=== PATIENT | female | born 1995 | race Caucasian/White ===

== ENCOUNTER → 2016-12-18 | Outpatient (CLI) | payer OTHER ==
[~2016-12-18] MED LIST: DOXY30TA PO; FERR1TAB23 PO; MTR600X PO; PANT40TA PO; PRENTAB26 PO; RANI300T2 PO; SUCR1TAB29 PO
[2016-12-18 15:18] LABS: THYROID STIMULATING HORMONE 1.8 uIu/ml (0.300-4.500)
== END | disposition home or self-care (01) ==
LOC: C.LAB1850 13:39
PROVIDERS: ATTEND Physician Assistant
DX: E05.00 Thyrotoxicosis with diffuse goiter without thyrotoxic crisis or storm (principal)

== ENCOUNTER → 2017-01-01 | Outpatient (CLI) | payer OTHER ==
[2017-01-01 14:15] LABS: THYROID STIMULATING HORMONE 1.42 uIu/ml (0.300-4.500)
== END | disposition home or self-care (01) ==
LOC: C.LAB1850 12:29
PROVIDERS: ATTEND Physician Assistant
DX: O99.280 Endocrine, nutritional and metabolic diseases complicating pregnancy, unspecified trimester (principal); E05.00 Thyrotoxicosis with diffuse goiter without thyrotoxic crisis or storm; Z3A.00 Weeks of gestation of pregnancy not specified

== ENCOUNTER → 2017-01-27 | Outpatient (CLI) | payer OTHER ==
[2017-01-27 15:16] LABS: THYROID STIMULATING HORMONE 1.7 uIu/ml (0.300-4.500)
== END | disposition home or self-care (01) ==
LOC: C.LAB1850 12:52
PROVIDERS: ATTEND Physician Assistant
DX: O99.280 Endocrine, nutritional and metabolic diseases complicating pregnancy, unspecified trimester (principal)

== ENCOUNTER → 2017-02-27 | Outpatient (CLI) | payer OTHER ==
[2017-02-27 15:15] LABS: THYROID STIMULATING HORMONE 1.43 uIu/ml (0.300-4.500)
== END | disposition home or self-care (01) ==
LOC: C.LAB1850 12:22
PROVIDERS: ATTEND Physician Assistant
DX: O99.280 Endocrine, nutritional and metabolic diseases complicating pregnancy, unspecified trimester (principal); E05.90 Thyrotoxicosis, unspecified without thyrotoxic crisis or storm

== ENCOUNTER 2017-03-27 07:30 | Inpatient (IN) | payer OTHER ==
[~2017-03-27] VITALS: Ht 162.6 cm; Wt 123.5 kg
[2017-03-27] MEDS ORDERED: LACTATED RINGER'S 1000ML 1,000 ML IV PRN (08:01)
[2017-03-27] MEDS ORDERED: LACTATED RINGER'S 1000ML 500 ML IV PRN ×2 (08:03→15:02)
[2017-03-27] MEDS ORDERED: OXYTOCIN 30 UNITS/500ML NSS IV PRN ×2 (08:15→20:15)
[2017-03-27 08:25] LABS: HEMATOCRIT 39.6 % (37-47); MEAN CELL VOLUME 83.7 fL (80-100); MEAN CORPUSCULAR HEMOGLOBIN 28.1 pg (25-34); MEAN CORPUSCULAR HGB CONC 33.6 g/dl (32-36); MEAN PLATELET VOLUME 11.1 fL (7.4-10.4); PLATELET COUNT 157 K/uL (130-400); RED BLOOD COUNT 4.73 M/uL (4.2-5.4); WHITE BLOOD COUNT 11.37 K/uL (4.8-10.8)
[2017-03-27] MEDS: LACTATED RINGER'S 1000ML 1,000 ML IV SCH ×2 (08:32→18:11)
[2017-03-27 09:45] VITALS: Ht 162.6 cm; Wt 123.5 kg
[2017-03-27] MEDS ORDERED: FERR1TAB23 PO (10:09)
[2017-03-27] MEDS ORDERED: PANT40TA PO (10:09)
[2017-03-27] MEDS ORDERED: RANI300T2 PO (10:09)
[2017-03-27] MEDS ORDERED: PRENTAB26 PO (10:09)
[2017-03-27] MEDS ORDERED: SUCR1TAB29 PO (10:09)
[2017-03-27] MEDS ORDERED: DOXY30TA PO (10:09)
[2017-03-27] MEDS ORDERED: BUTORPHANOL TARTRATE 1 MG/ML VIAL IV PRN (13:15)
[2017-03-27] MEDS ORDERED: BUPIVACAINE 0.25% 30 ML VIAL ONE (14:14)
[2017-03-27] MEDS ORDERED: FENTANYL 2MCG/ML ROPIV 1.25MG/ML 100ML BAG EPI ONE (14:14)
[2017-03-27] MEDS ORDERED: EpHEDrine SULFATE INJ 50 MG/ML AMP ONE (14:14)
[2017-03-27] MEDS ORDERED: FENTANYL CITRATE INJ 50 MCG/1 ML 2 ML VIAL ONE (14:15)
[2017-03-27] MEDS ORDERED: NALOXONE HCL INJ 1 MG in SODIUM CHLORIDE 0.9% 1000ML 1,000 ML IV PRN (15:02)
[2017-03-27] MEDS ORDERED: FENTANYL 2MCG/ML ROPIV 1.25MG/ML 100ML BAG EPI PRN (15:15)
[2017-03-27] MEDS ORDERED: NALOXONE HCL INJ 0.4 MG/1 ML VIAL/CARP IV PRN (15:15)
[2017-03-27] MEDS ORDERED: ONDANSETRON INJ 2 MG/ML 2 ML VIAL IV PRN (15:15)
[2017-03-27] MEDS ORDERED: NALBUPHINE HCL INJ 10 MG/ML AMP IV PRN (15:15)
[2017-03-27] MEDS ORDERED: DiphenhydrAMINE HCL 50 MG/ML VIAL IV PRN (15:15)
[2017-03-27] MEDS ORDERED: EpHEDrine SULFATE INJ 50 MG/ML AMP IV PRN (15:15)
[2017-03-27] MEDS ORDERED: BENZOCAINE 20% AER SPR 82.5 GM CAN EXT PRN (20:15)
[2017-03-27] MEDS ORDERED: DIPHTHERIA/TETANUS/PERTUSSIS 0.5 ML SYR/VIAL IM. ONE (20:15)
[2017-03-27] MEDS ORDERED: SUPERCREAM 0.870 % 15GM JAR EXT PRN (20:15)
[2017-03-27] MEDS ORDERED: OXYCODONE/ACETAMINOPHEN 5-325 TAB PO PRN (20:15)
[2017-03-27] MEDS ORDERED: LANOLIN OINT EXT PRN ×2 (20:15)
[2017-03-27] MEDS ORDERED: ACETAMINOPHEN/CODEINE 300/30MG TAB PO PRN ×2 (20:15)
[2017-03-27] MEDS ORDERED: HYDROCORTISONE ACETATE 25 MG SUPP PR PRN (20:15)
[2017-03-27] MEDS ORDERED: ACETAMINOPHEN 325 MG TAB PO PRN (20:15)
--- NOTE | 2017-03-27 20:19 | Progress Note ---
Progress Note Date of Service Mar 27, 2017. Progress Note DELIVERY NOTE: DATE OF DELIVERY: 03/27/2017 TIME OF DELIVERY: 1939 TIME OF PLACENTA: 1941 DELIVERY SUMMARY: Patient is a 21 y/o at 39.3 weeks who was admitted to L& D on the morning of 03/27/17 for a scheduled induction of labor secondary to class II obesity. She has a history of hypothyroidism and depression/anxiety. On admission she was found to be 3/60/-3 and oxytocin was started per protocol for induction. She received an epidural for anesthesia. AROM with meconium stained amniotic fluid noted at 1650. She reached complete dilation at 191 with the urge to push. She pushed to delivery at 1939. She delivered a viable female in the CHLOE position to an intact perineum, nuchal cord x 1 was reduced at delivery. Baby was placed on the patients abdomen, cord was clamped x 2 and cut. APGARs were 8 at 1 minute and 9 at 5 minutes. Cord blood was obtained. An intact placenta with 3 VC delivered at 1941. Oxytocin infusion was then began. The lower uterine segment and vagina was cleared of any blood clots and debris. Exploration of the perineum noted a second degree midline perineal laceration which was repaired with 2-0 and 3-0 Vicryl suture in a normal fashion. Excellent hemostasis noted. No other lacerations seen. All sponge, instrument and needle counts were found to be correct x 2. EBL was 300 cc. Patient tolerated the delivery well and was in recovery with stable vital signs.
--- NOTE | 2017-03-27 21:40 | Anesthesia Procedure Note ---
Anesthesia Epidural Removal Nt Date & Time Mar 27, 2017 at 21:40 Vital Signs Pain Intensity: 4.0 Notes Mental Status: alert / awake / arousable, participated in evaluation Nausea / Vomiting: adequately controlled Pain: adequately controlled Airway Patency, RR, SpO2: stable & adequate BP & HR: stable & adequate Hydration State: stable & adequate Neuraxial Anesthesia: was administered, sensory block is resolving Anesthetic Complications: no major complications apparent, pt satisfied with anesthetic care Epidural: removed without complications, with tip intact
[2017-03-27] MEDS: RANITIDINE HCL 150 MG TAB PO SCH (22:00)
[2017-03-27] MEDS: IBUPROFEN 600 MG TAB PO PRN (22:26)
[2017-03-27 23:30] VITALS: BP 122/84; PULSE 92; TEMP 37.5; O2SAT 99
[2017-03-28] VITALS (7 sets, daily range): BP systolic 109–125; BP diastolic 75–82; PULSE 80–93; TEMP 36.5–37.3; O2SAT 97–100
[2017-03-28] MEDS: IBUPROFEN 600 MG TAB PO PRN ×6 (03:48→22:57)
[2017-03-28 06:06] LABS: HEMATOCRIT 35.7 % (37-47)
[2017-03-28] MEDS: PRENATAL VITAMIN TAB PO SCH (07:39)
[2017-03-28] MEDS: FERROUS SULFATE 325 MG TAB PO SCH (07:39)
[2017-03-28] MEDS: PANTOprazole SOD 40 MG TAB PO SCH (07:39)
[2017-03-28] MEDS: DOCUSATE SODIUM 100 MG CAP PO SCH ×2 (07:39→19:58)
--- NOTE | 2017-03-28 09:54 | OB/GYN Progress Note ---
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 Subjective conversation w/ patient, conversation w/ family, physical exam Ambulation: ambulating normally Voiding: no voiding problems Passing Gas: Yes Diet Tolerance: Regular Diet Lochia: Small Feeding Type: Breast Feeding Objective Vital Signs Date Time Temp Pulse Resp B/P (MAP) Pulse Ox O2 Delivery O2 Flow Rate FiO2 03/28/17 08:56 37.1 93 93 118/75 (89) 98 Room Air 03/28/17 03:30 37.1 93 16 125/76 (92) 100 Room Air 03/28/17 02:17 37.1 03/27/17 23:30 37.5 92 18 122/84 (97) 99 Room Air 03/27/17 23:30 99 Room Air Physical Exam General Appearance: NO APPARENT DISTRESS Abdomen: non tender, soft Fundus: Firm Extremities: non-tender, normal inspection, no pedal edema Laboratory Results Last 24 Hours Test 03/28/17 05:47 Hemoglobin 11.4 g/dL Hematocrit 35.7 % Assessment and Plan Post- Day Number: 1 Continue Routine Care: tent d/c in AM
[2017-03-28] MEDS ORDERED: BISACODYL 5 MG TABEC PO SCH (20:00)
[2017-03-28] MEDS: RANITIDINE HCL 150 MG TAB PO SCH (22:56)
[2017-03-29] MEDS ORDERED: MTR600X PO (01:01)
--- NOTE | 2017-03-29 01:03 | Discharge Instructions ---
Discharge Instructions Date of Service Mar 29, 2017. Admission Reason for Admission: Induction Discharge Discharge Diagnosis / Problem: term delivered Discharge Goals Goal(s): Routine recovery after delivery Activity Recommendations Activity Limitations: as noted below Lifting Limitations: no more than 10 pounds Exercise/Sports Limitations: none May Resume Sexual Activity: when tolerated, after follow-up appointment Shower/Bathe: no limitations Driving or Machine Use: resume 3 days after discharge . Instructions / Follow-Up Instructions / Follow-Up ACTIVITY RECOMMENDATIONS: * Gradual return to full activity over the next 2-3 weeks. * No lifting - nothing heavier than baby over the next 2-3 weeks. * Do not engage in vigorous exercise, sexual activity or sports until cleared by your physician. * Do not drive or operate any motorized equipment until cleared by your physician. * You may shower/bathe daily. BREAST CARE: If you are not breast feeding: * Wear a supportive bra 24 hours a day for one to two weeks. * Avoid stimulating your breasts and nipples as much as possible during the first few weeks after delivery. * When taking a shower, have the warm water hit your back, not breasts. * When your breasts feel full, apply ice packs. Usually three to four times a day helps ease the discomfort. * Take a mild pain medication (Tylenol/Motrin) when you are uncomfortable. If breast feeding: * Use breast milk to lubricate nipples. Lansinoh cream may be used for sore nipples. You do not need to remove cream prior to breast feeding. If using a different brand of cream, check the label for directions regarding removal of cream prior to nursing. * Wear a supportive bra. * If having problems with breasts or breast feeding, call a eap consultant or your health care provider. EPISIOTOMY CARE: After delivery, if you have an episiotomy (stitches), the following steps will ease discomfort and aid healing. * For the first 24 hours after delivery, place ice packs next to your episiotomy to help reduce swelling. * After the first 24 hour-period, sitz baths, either portable or in the tub, are suggested. A shower with a shower arm sprayed over the episiotomy may be comforting. * Sharlene care should be done after each voiding and bowel movement. Squirt warm water from a plastic bottle over the perineum (region of the body between the anus and urinary opening) and pat dry. * Use Dermoplast to ease discomfort. Shake container. [place] directly over the episiotomy. * Place a Tucks on a clean sanitary pad next to your episiotomy. OVER THE COUNTER MEDICATION: * For discomfort or pain, you may use Acetaminophen (Tylenol), Ibuprofen (Advil ), or Naproxen (Aleve) following the package directions. * For constipation you may use Colace following the package directions. SPECIAL CARE INSTRUCTIONS: When you are discharged from the hospital, it is important for you to follow the instructions listed below: * During the first week at home, you should be able to care for yourself and your baby. In addition, the usual light household activities are encouraged. * Limit your activities to the way you feel. Do not try to clean the house or move furniture. Be sensible. * If you actively engage in sports and have done so up until the time of your delivery, you may resume these activities as soon as you feel able. This may take up to one month or even longer. Use good judgment. * Continue to take your vitamins for at least six weeks after the of your baby. * Your diet need not be limited unless you were on a special diet before your delivery. Breast-feeding mothers need around 2500 calories per day and at least 64-80 ounces of fluid per day (8 to 10 glasses). * You should eat foods from the four major food groups. Crash diets or fad diets are to be avoided. Eating lean meats, fresh fruits and vegetables, low-fat dairy products, high fiber foods and a regular exercise program, will help you get back to your pre- weight without putting your health at risk. * Constipation is sometimes a problem after delivery. Take a mild laxative as needed. If breast feeding, Milk of Magnesia is acceptable to use. You may use a suppository or Fleets enema if no episiotomy. * A daily shower or tub bath is suggested. Be sure to thoroughly and gently dry the perineum. * A bloody vaginal discharge will usually continue until around four weeks post . A small amount of bleeding may continue for as long as six weeks. Vaginal discharge changes from the bright red bleeding after delivery to pink then brownish and finally yellowish-pink before becoming white and disappearing. * Bleeding may increase with activity. Your first period may come in 4-8 weeks. If you are breast feeding, your period may be delayed even longer. * [place] (sex) can begin whenever both you and your partner feel comfortable and do not have any form of genital infection. It is recommended that you wait until after your return appointment and discuss with your physician. If you have questions, please talk to your health care practitioner. A condom should be used to prevent infection and . * Foreplay, gentle intercourse and lubrication is very important the first several times to prevent pain. A water-based lubricant such as K-Y jelly or Astroglide may be used. * Tampons may be used six weeks after delivery. * Douching should be avoided for 6 weeks after delivery. * If you have RH negative blood and your baby is RH positive, you will receive RHOGAM by injection prior to discharge. The nurse will give you a card to keep with you that has the date and place that you received RHOGAM after delivery. * During your care, you had a Rubella screen done to check for the presence of rubella antibodies in your blood. If your test was negative, you will receive a Rubella vaccine prior to discharge. This vaccine may cause a fever, soreness at the injection site and flu-like symptoms. If these symptoms persist, notify your health care practitioner. is not advised for three months after a Rubella vaccine. There is a higher chance of having a baby with defects if conceived within three months of getting the vaccine. * If you were discharged 24 hours from delivery or before 48 hours: Visiting nurses will come to your home 48 hours after discharge to assess you and your baby. The visiting nurse will meet with you while you are in the hospital to arrange a time and get directions to your home. * Verbalizes understanding of car seat law as reviewed with patient nursing. * Car Seat hand-out given and reviewed with patient by nursing. * Shaken baby information reviewed with patient by nursing. Call you doctor if: * Heavy bleeding (saturating several pads an hour) or passing clots the size of your fist. * A fever >101 degrees F (38.3 degrees C) on two occasions four hours apart and/or chills. * Unusual pain in the pelvic or vaginal areas. * "Baby Blues" lasting longer than two weeks. If you have any questions or concerns, call your health care practitioner at . FOLLOW-UP VISIT: * Please call the office at to schedule a 6 week examination. It is important you keep this appointment. * It is important for you to make arrangements for either yearly or twice yearly check-ups thereafter. Current Hospital Diet Patient's current hospital diet: Regular OB Diet Discharge Diet Recommended Diet: Regular OB Diet Fluid Restriction: None Pending Studies Studies pending at discharge: no Medical Emergencies . Who to Call and When: Medical Emergencies: If at any time you feel your situation is an emergency, please call 911 immediately. . Non-Emergent Contact Non-Emergency issues call your: Primary Care Provider . . "Provider Documentation" section prepared by Rosendo Taylor. . VTE Core Measure Inpt VTE Proph given/why not?: Treatment not indicated
[2017-03-29] MEDS: IBUPROFEN 600 MG TAB PO PRN ×2 (06:30→10:26)
[2017-03-29] MEDS ORDERED: BISACODYL 10 MG SUPP PR PRN (07:00)
[2017-03-29 07:23] LABS: MEAN CELL VOLUME 85.5 fL (80-100); MEAN CORPUSCULAR HEMOGLOBIN 27.6 pg (25-34); MEAN CORPUSCULAR HGB CONC 32.2 g/dl (32-36); MEAN PLATELET VOLUME 11.2 fL (7.4-10.4); PLATELET COUNT 151 K/uL (130-400); RED BLOOD COUNT 4.21 M/uL (4.2-5.4); WHITE BLOOD COUNT 12.38 K/uL (4.8-10.8)
--- NOTE | 2017-03-29 08:37 | OB/GYN Progress Note ---
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 Subjective conversation w/ patient, physical exam Ambulation: ambulating normally Voiding: no voiding problems, no incontinence Passing Gas: Yes Diet Tolerance: Regular Diet Lochia: Small Feeding Type: Breast Feeding Objective Vital Signs Date Time Temp Pulse Resp B/P (MAP) Pulse Ox O2 Delivery O2 Flow Rate FiO2 03/28/17 23:05 97 Room Air 03/28/17 23:05 36.5 80 20 109/77 (88) 97 Room Air 03/28/17 15:20 98 Room Air 03/28/17 15:19 37.2 83 20 120/81 (94) 98 Room Air 03/28/17 11:43 37.3 87 20 121/82 (95) 98 Room Air 03/28/17 08:56 37.1 93 93 118/75 (89) 98 Room Air Physical Exam General Appearance: WELL-APPEARING, NO APPARENT DISTRESS Abdomen: non tender, soft Fundus: Firm Extremities: non-tender, normal inspection, no pedal edema Laboratory Results Last 24 Hours Test 03/29/17 06:39 White Blood Count 12.38 K/uL Red Blood Count 4.21 M/uL Hemoglobin 11.6 g/dL Hematocrit 36.0 % Mean Corpuscular Volume 85.5 fL Mean Corpuscular Hemoglobin 27.6 pg Mean Corpuscular Hemoglobin Concent 32.2 g/dl RDW Standard Deviation 45.2 fL RDW Coefficient of Variation 14.5 % Platelet Count 151 K/uL Mean Platelet Volume 11.2 fL Assessment and Plan Post- Day Number: 2 Continue Routine Care: discharged
[2017-03-29] MEDS: PRENATAL VITAMIN TAB PO SCH (08:43)
[2017-03-29] MEDS: DOCUSATE SODIUM 100 MG CAP PO SCH (08:43)
[2017-03-29] MEDS: PANTOprazole SOD 40 MG TAB PO SCH (08:43)
[2017-03-29] MEDS: FERROUS SULFATE 325 MG TAB PO SCH (08:43)
[2017-03-29] MEDS: RANITIDINE HCL 150 MG TAB PO SCH (08:44)
[2017-03-29 08:45] VITALS: BP 125/82; PULSE 93; TEMP 37.1; O2SAT 98
[2017-03-29 11:40] VITALS: BP_DIAS 82; PULSE 93; TEMP 37.1
== END 2017-03-29 11:55 | disposition home or self-care (01) | DRG 775 ==
LOC: C.LD 07:30 → C.OBG 22:53
PROVIDERS: ADMIT Obstetrics & Gynecology; ATTEND Obstetrics & Gynecology
PROC: 0KQM0ZZ Repair Perineum Muscle, Open Approach (ICD-10-PCS; principal; 2017-03-27)
PROC: 10E0XZZ Delivery of Products of Conception, External Approach (ICD-10-PCS; principal; 2017-03-27)
PROC: 3E033VJ Introduction of Other Hormone into Peripheral Vein, Percutaneous Approach (ICD-10-PCS; principal; 2017-03-27)
PROC: 10907ZC Drainage of Amniotic Fluid, Therapeutic from Products of Conception, Via Natural or Artificial Opening (ICD-10-PCS; principal; 2017-03-27)
DX: O99.214 Obesity complicating childbirth (principal); Z68.42 Body mass index [BMI] 45.0-49.9, adult; Z37.0 Single live birth; E66.01 Morbid (severe) obesity due to excess calories; O69.81X0 Labor and delivery complicated by cord around neck, without compression, not applicable or unspecified; O70.1 Second degree perineal laceration during delivery; O77.0 Labor and delivery complicated by meconium in amniotic fluid; O99.02 Anemia complicating childbirth; D64.9 Anemia, unspecified; O99.62 Diseases of the digestive system complicating childbirth; K21.9 Gastro-esophageal reflux disease without esophagitis; O99.284 Endocrine, nutritional and metabolic diseases complicating childbirth; E05.00 Thyrotoxicosis with diffuse goiter without thyrotoxic crisis or storm; Z3A.39 39 weeks gestation of pregnancy; Z79.899 Other long term (current) drug therapy

== ENCOUNTER → 2017-06-05 | Outpatient (CLI) | payer OTHER ==
[2017-06-05 16:20] LABS: THYROID STIMULATING HORMONE 1.82 uIu/ml (0.300-4.500)
== END | disposition home or self-care (01) ==
LOC: C.LAB1850 14:09
PROVIDERS: ATTEND Physician Assistant
DX: E05.00 Thyrotoxicosis with diffuse goiter without thyrotoxic crisis or storm (principal)

== ENCOUNTER → 2017-07-08 | Outpatient (CLI) | payer OTHER ==
[2017-07-08 13:27] LABS: THYROID STIMULATING HORMONE 2.73 uIu/ml (0.300-4.500)
== END | disposition home or self-care (01) ==
LOC: C.LAB1850 10:32
PROVIDERS: ATTEND Physician Assistant
DX: O99.280 Endocrine, nutritional and metabolic diseases complicating pregnancy, unspecified trimester (principal); E05.00 Thyrotoxicosis with diffuse goiter without thyrotoxic crisis or storm; Z3A.00 Weeks of gestation of pregnancy not specified

== ENCOUNTER → 2017-09-28 | Outpatient (CLI) | payer OTHER | LOC: C.LAB1850 12:29 | PROVIDERS: ATTEND Physician Assistant | DX: E05.00 Thyrotoxicosis with diffuse goiter without thyrotoxic crisis or storm (principal) ==

== ENCOUNTER → 2017-11-24 | Outpatient (CLI) | payer OTHER | END | disposition home or self-care (01) | LOC: C.LAB1850 14:34 | PROVIDERS: ATTEND Physician Assistant | DX: O99.280 Endocrine, nutritional and metabolic diseases complicating pregnancy, unspecified trimester (principal) ==

== ENCOUNTER → 2017-12-25 | Outpatient (CLI) | payer OTHER | END | disposition home or self-care (01) | LOC: C.LAB1850 11:17 | PROVIDERS: ATTEND Internal Medicine Endocrinology, Diabetes & Metabolism | DX: E03.9 Hypothyroidism, unspecified (principal) ==

== ENCOUNTER 2019-01-20 10:24 | Inpatient (IN) ==
--- OUTSIDE RECORDS SUMMARY | 2019-01-20 10:28 | External Medical Summary | Continuity of Care Document ---
:1995 Author Name Mohan Vega, Provider Address Unavailable Unavailable , Care Team Providers Name Role Phone Francisco Javier Rodriguez PA-C Unavailable [email or web address]. 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 Start: 20-Aug-2016 Quantity: 60 Refills: 5 Iron 325 (65 Fe) MG Oral Tablet; TAKE 1 TABLET DAILY WITH FO OD. Refills: 0 Clindamycin Phosphate 1 % External Gel; APPLY AND GENTLY MASSAGE INTO AFFECTED AREA(S) ONCE DAILY. 60 GM Tube Quantity: 1 Refills: 3 Multivitamin Adult Oral Tablet; TAKE 1 TABLET DAILY. Start: 25-Nov-2017 Refills: 0 raNITIdine HCl - 300 MG Oral Tablet; TAKE 1 TABLET AT BEDTIM E. Start: 26-Mar-2018 Refills: 0 Pantoprazole Sodium 40 MG Oral Tablet Delayed Release; one tablet every morning Start: 26-Mar-2018 Refills: 0 7 Tablet Bottle Levothyroxine Sodium 125 MCG Oral Tablet; TAKE 1 TABLE T DAILY. ASPEN Rodriguez Start: 30-Jul-2018 Quantity: 90 Refills: 3 Procedures Procedures not documented Immunizations Immunizations not documented Social History - Smoking Status Former smoker Plan of Treatment Planned Encounters Appointment; Francisco Javier Rodriguez PA-C Start: 29-Mar-2019 9:3 0 Request Planned Observations Planned Goals not documented Results No Known Results Results not documented Encounters Appointment; Francisco Javier Rodriguez PA-C 26-Mar-2018 14:30 Encounter Diagnosis: Problem not documented Appointment; Jozef Brito M.D. 25-Nov-2017 10:20 Encounter Diagnosis: Problem not documented Appointment; Francisco Javier Rodriguez PA-C 29-Mar-2019 9:30 Encounter Diagnosis: Problem not documented
[2019-01-20] MEDS ORDERED: miSOPROStol 25 MCG TAB PV ONE (11:27)
[2019-01-20] MEDS ORDERED: OXYTOCIN 30 UNITS/500 ML BAG IV PRN ×3 (11:27→20:31)
[2019-01-20] MEDS ORDERED: LACTATED RINGER'S 1,000 ML IV PRN ×3 (11:27→19:07)
--- NOTE | 2019-01-20 11:37 | Obstetrical Progress Note ---
Date of Service January 20, 2019 Subjective Admit Note Physical Exam Physical Exam: 30 F P1001 at 39.4 weeks admitted for IOL for Class 3 obesity. Her care was uncomplicated. GBS is negative. FHT Cat 1. Had unc omplicated vaginal delivery 1n 2016 with epidural. Cervix on exam is 3/60/- 3/posterior/soft/intact/vertex. EFW 8.5 lbs. Will start induction with Cytotec 25 mcg vaginally. Discussed with patient and spouse. Anticipate vaginal delivery. Results & Data Vital Signs (Past 12 Hours) Vital Signs Temp Pulse Resp BP 01/20/19 10:28 118 H 126/81 01/20/19 10:27 37.1 C 20
[2019-01-20] MEDS: LACTATED RINGER'S 1,000 ML IV SCH ×2 (11:43→18:10)
--- NOTE | 2019-01-20 11:58 | Obstetrical Progress Note ---
Date of Service January 20, 2019 Physical Exam Physical Exam: Cytotec 25 mcg placed vaginally. FHT Cat 1. Results & Data Vital Signs (Past 12 Hours) Vital Signs Temp Pulse Resp BP 01/20/19 10:28 118 H 126/81 01/20/19 10:27 37.1 C 20
[2019-01-20 12:12] LABS: Hematocrit (blood only) 37.3 % (37-47); Hemoglobin 12.9 g/dL (12.0-16.0); Mean Corpuscular Volume 79.9 fL (80-100); Mean Platelet Volume 11.1 fL (7.4-10.4); Platelet Count 147 K/uL (130-400); RDW Coefficient of Variation 15.4 % (11.5-14.5); RDW Standard Deviation 44.9 fL (36.4-46.3); Red Blood Count 4.67 M/uL (4.2-5.4); White Blood Count 10.87 K/uL (4.8-10.8)
[2019-01-20 12:20] LABS: Mean Corpuscular Hgb Conc 34.6 g/dL (32-36)
--- NOTE | 2019-01-20 16:33 | Obstetrical Progress Note ---
Date of Service January 20, 2019 Subjective feeling more contractions Physical Exam Constitutional: WD/WN, vitals as above comfortable Genitourinary: OB Exam Abdomen: + vertex and + irregular contractions Manual OB Exam: + cervical dilation 4 cm, + cervical effacement 70% and + station -1 OB Exam Monitor Tracing: + category I cervix anterior and soft bulging membranes will start Oxytocin to augment contractions Results & Data Vital Signs (Past 12 Hours) Vital Signs Temp Pulse Resp BP 01/20/19 14:21 37.0 C 109 H 20 139/78 01/20/19 10:28 118 H 126/81 01/20/19 10:27 37.1 C 20
[2019-01-20] MEDS ORDERED: ePHEDrine sulfate 50 MG/ML AMP ONE (17:25)
[2019-01-20] MEDS ORDERED: fentaNYL citrate 100 MCG/2 ML VIAL ONE (17:25)
[2019-01-20] MEDS ORDERED: BUPIVACAINE 0.25% 30 ML VIAL ONE (17:25)
[2019-01-20] MEDS ORDERED: fentaNYL 2MCG/ML ROPIV 1.25MG/ML 100 ML BAG EPI ONE (17:26)
--- NOTE | 2019-01-20 17:58 | Anesthesiology Consultation ---
Date of Service January 20, 2019 Assessment & Plan (1) Encounter for pre-operative examination: Chart Review Chart Review: Acceptable Risk for Surgery and Acceptable Risk for Labor Epidural History Height/Weight Height: 5 ft 4 in Weight: 129.274 kg Allergies Allergy/AdvReac Type Severity Reaction Status Date / Time tree and shrub pollen AdvReac Mild Hives Verified 12/18/18 19:26 DUST MITES AdvReac Mild RASH Uncoded 03/27/17 10:11 Medications Home Medications Medication Instructions Recorded Confirmed Last Taken ferrous sulfate [iron] 325 mg PO DAILY #0 03/27/17 01/20/19 01/20/19 09:00 pantoprazole [Protonix] 40 mg PO DAILY #30 tab 03/27/17 01/20/19 01/20/19 09:00 ranitidine HCl [Zantac] 300 mg PO HS #0 tab 03/27/17 01/20/19 01/19/19 23:30 PNV cmb#95-ferrous fumarate-FA 1 tab PO DAILY 12/18/18 01/20/19 01/20/19 09:00 [] levothyroxine 125 mcg PO DAILY 12/18/18 01/20/19 01/20/19 03:00 clindamycin phosphate 1 applic TOPICAL BID 01/20/19 01/20/19 01/20/19 09:00 Active Medications Generic Name Dose Route Start Last Admin Trade Name Freq PRN Reason Stop Dose Admin Lactated Ringer's 1,000 mls @ 125 mls/hr 01/20/19 11:30 01/20/19 17:18 Lr IV 01/22/19 11:29 999 mls/hr .Q8H IVET Infusion Oxytocin 30 units in 500 mls @ 2 mls/hr 01/20/19 16:30 01/20/19 17:47 Pitocin IV 02/19/19 16:29 0.18 units/hr .Q24H PRN 3 mls/hr Labor Induction/Augmentation Titration Protocol 0.12 UNITS/HR Past Medical History Medical History Obesity Depression GERD (gastroesophageal reflux disease) Graves disease Past Surgical History Surgical History History of esophagogastroduodenoscopy (EGD) Social History Smoking Status: Former smoker Do You Dip or Chew Tobacco: No Hx Alcohol Use: No Hx Substance Use: No substance use type: does not use Physical Exam Vital Signs Last Vital Signs Temp 37.0 C 01/20/19 14:21 Pulse 101 H 01/20/19 16:50 Resp 20 01/20/19 14:21 BP 139/71 01/20/19 16:50 Testing Laboratory Results 01/20/19 11:49
[2019-01-20] MEDS ORDERED: ePHEDrine sulfate 50 MG/ML AMP IV PRN (19:07)
[2019-01-20] MEDS ORDERED: NALOXONE HCL 1 MG in SODIUM CHLORIDE 0.9% 1000ML 1,000 ML IV PRN (19:07)
[2019-01-20] MEDS ORDERED: NALOXONE HCL 0.4 MG/1 ML VIAL/CARP IV PRN (19:07)
[2019-01-20] MEDS ORDERED: fentaNYL 2MCG/ML ROPIV 1.25MG/ML 100 ML BAG EPI PRN (19:07)
[2019-01-20] MEDS ORDERED: ONDANSETRON INJ 2 MG/ML 2 ML VIAL IV PRN (19:07)
[2019-01-20] MEDS ORDERED: MEASLES, MUMPS & RUBELLA VIRUS VIAL SQ ONE (20:31)
[2019-01-20] MEDS ORDERED: HYDROCORTISONE ACETATE 25 MG SUPP PR PRN (20:31)
[2019-01-20] MEDS ORDERED: BISACODYL 10 MG SUPP PR PRN (20:31)
[2019-01-20] MEDS ORDERED: DIPHTHERIA/TETANUS/PERTUSSIS 0.5 ML SYR/VIAL IM ONE (20:31)
[2019-01-20] MEDS ORDERED: BENZOCAINE 20% AER SPR 82.5 GM CAN EXT PRN (20:31)
[2019-01-20] MEDS ORDERED: SUPERCREAM 0.870% 15 GM JAR EXT PRN (20:31)
--- NOTE | 2019-01-20 20:36 | Anesthesia Procedure Note ---
Date of Service January 20, 2019 Anesthesia Post Epidural Note Vital Signs Vital Signs: Temp Pulse Resp BP Pulse Ox 37.3 C 114 H 18 157/66 H 97 01/20/19 19:07 01/20/19 20:32 01/20/19 20:27 01/20/19 20:27 01/20/19 20:32 Notes Mental Status: alert / awake / arousable and participated in evaluation Nausea / Vomiting: adequately controlled Pain: adequately controlled Airway Patency, RR, SpO2: stable & adequate BP & HR: stable & adequate Hydration State: stable & adequate Neuraxial Anesthesia: was administered and sensory block is resolving Anesthetic Complications: no major complications apparent Epidural: Removed without complications and With tip intact
--- NOTE | 2019-01-20 20:36 | Procedure Note ---
Vaginal Delivery Summary Date of Service January 20, 2019 Vaginal Delivery Summary Delivery note live male over intact perineum with nuchal cord x1 reduced on perineum at delivery with Apgars 8/9 weight pending. Delayed cord clamping followed by cord blood and spontaneous delivery of intact placenta. No tears. EBL 200 ml. Final sponge and instrument count are correct. Mom and baby stable.
[2019-01-20] MEDS: IBUPROFEN 600 MG TAB PO PRN (21:28)
[2019-01-21] MEDS: DOCUSATE SODIUM 100 MG CAP PO SCH ×3 (01:39→20:28)
[2019-01-21] MEDS: IBUPROFEN 600 MG TAB PO PRN ×5 (01:40→20:28)
[2019-01-21] MEDS: ACETAMINOPHEN 325 MG TAB PO PRN ×2 (05:07→12:50)
[2019-01-21] MEDS: LEVOTHYROXINE SODIUM 125 MCG TABLET PO SCH (06:26)
[2019-01-21 07:26] LABS: Hematocrit (blood only) 34.1 % (37-47); Hemoglobin 11.3 g/dL (12.0-16.0); Mean Corpuscular Hgb Conc 33.1 g/dL (32-36); Mean Corpuscular Volume 80.8 fL (80-100); Platelet Count 134 K/uL (130-400); RDW Coefficient of Variation 15.5 % (11.5-14.5); RDW Standard Deviation 45.2 fL (36.4-46.3); Red Blood Count 4.22 M/uL (4.2-5.4); White Blood Count 11.87 K/uL (4.8-10.8)
[2019-01-21] MEDS: PANTOprazole 40 MG TAB PO SCH (08:39)
[2019-01-21] MEDS: FERROUS SULFATE 325 MG TAB PO SCH (08:39)
[2019-01-21] MEDS: PRENATAL VITAMIN 1 TAB PO SCH (08:40)
[2019-01-21] MEDS: CLINDAMYCIN PHOSPHATE TOPICAL SOLUTION TOP SCH ×2 (08:46→20:29)
[2019-01-21] MEDS ORDERED: NON-FORMULARY MEDICATION (Pnv Cmb#95-Ferrous Fumarate-Fa [Prenatal] 1 TAB) PO SCH (09:00)
--- NOTE | 2019-01-21 09:06 | Obstetrical Progress Note ---
Date of Service January 21, 2019 Subjective doing fine Physical Exam Constitutional: WD/WN, vitals as above comfortable Gastrointestinal (Abdomen): abdomen soft non-tender neg edema neg Uli's tent d/c in AM Results & Data Vital Signs (Past 12 Hours) Vital Signs Temp Pulse Pulse Resp BP BP Pulse Ox 01/21/19 07:30 36.5 C 95 H 18 126/83 98 01/21/19 03:10 36.8 C 80 18 122/79 01/20/19 23:45 37.2 C 112 H 18 136/66 01/20/19 23:06 37.2 C 114 H 20 136/66 01/20/19 22:27 37.2 C 98 H 20 125/60 01/20/19 22:12 107 H 126/70 01/20/19 21:56 110 H 20 128/77 01/20/19 21:41 106 H 134/77 01/20/19 21:27 102 H 18 136/79 01/20/19 21:12 108 H 18 141/89 H
[2019-01-21] MEDS ORDERED: BISACODYL 5 MG TABEC PO SCH (20:00)
[2019-01-22] MEDS: LEVOTHYROXINE SODIUM 125 MCG TABLET PO SCH (06:23)
[2019-01-22] MEDS: IBUPROFEN 600 MG TAB PO PRN ×2 (06:23→11:20)
[2019-01-22 06:41] LABS: Hematocrit (blood only) 35.6 % (37-47); Hemoglobin 11.8 g/dL (12.0-16.0)
[2019-01-22] MEDS: PANTOprazole 40 MG TAB PO SCH (08:54)
[2019-01-22] MEDS: DOCUSATE SODIUM 100 MG CAP PO SCH (08:54)
[2019-01-22] MEDS: FERROUS SULFATE 325 MG TAB PO SCH (08:54)
[2019-01-22] MEDS: PRENATAL VITAMIN 1 TAB PO SCH (08:54)
[2019-01-22] MEDS: CLINDAMYCIN PHOSPHATE TOPICAL SOLUTION TOP SCH (08:55)
--- NOTE | 2019-01-22 10:52 | Obstetrical Progress Note ---
Date of Service January 22, 2019 Assessment & Plan (1) normal course: PPD #2 pt doing well dsich home with instrcutions Subjective Ambulation: ambulating normally Voiding: no voiding problems Passing Gas:: Yes Diet Tolerance:: regular diet Lochia:: Small Feeding Type:: breast feeding Review of Systems All systems reviewed & are unremarkable except as noted in HPI & below Physical Exam Vital Signs (Past 24 Hours) Last Vital Signs Temp 36.9 C 01/22/19 07:30 Pulse 93 H 01/22/19 07:30 Resp 18 01/22/19 07:30 BP 117/76 01/22/19 07:30 Pulse Ox 98 01/21/19 23:20 Constitutional WD/WN, vitals as above well developed and well nourished Eyes PERRL, conjunctivae normal, anicteric sclerae Neck trachea midline, no thyromegaly Respiratory normal respiratory effort, lungs clear to auscultation Auscultation: no crackles, no rales and no wheezes Cardiovascular RRR, no murmur, no edema Gastrointestinal (Abdomen) normal bowel sounds, soft, nontender, no hepatosplenomegaly Uterus is below umbilicus Musculoskeletal no cyanosis or clubbing, extremities motor strength 5/5 Skin no rashes, warm and dry Neurologic patellar DTR's 2+ bilat, sensation intact Psychiatric A+Ox3, euthymic affect Genitourinary normal external appearance
== END 2019-01-22 14:12 | disposition home or self-care (01) | DRG 806 ==
LOC: 4S1 10:24 → 4S2 23:45